=== PATIENT | female | born 1975 ===

== ENCOUNTER 2017-11-11 08:01 | Day surgery (SDC) | payer BC ==
[~2017-11-11 08:01] MED LIST: Buffered Lidocaine 0.9% SYRIN* 5 ML/SYR SYRINGE INTRADERM ONE
[2017-11-11] MEDS ORDERED: BSS OPTH.SOL* BTL ONE (10:24)
[2017-11-11] MEDS ORDERED: Methylene Blue 0.5 %* 50 MG/10 ML AMP IV ONE (10:24)
[2017-11-11] MEDS ORDERED: Lidocain 1% EPI 1:100,000 * 30 ML MDV ONE (10:24)
[2017-11-11] MEDS ORDERED: ceFAZolin 2 GM PREMIX (*) 2 GM/50 ML BAG IVPB ONE (10:32)
[2017-11-11] MEDS ORDERED: fentaNYL* 50 MCG/ML 2 ML VIAL (100 MCG VIAL) ONE (10:35)
[2017-11-11] MEDS ORDERED: Midazolam* 1 MG/ML 5 ML VIAL (5 MG) ONE (10:35)
[2017-11-11] MEDS ORDERED: Naloxone* 0.4 MG/ML 1 ML VIAL IV PRN (11:03)
[2017-11-11] MEDS ORDERED: Midazolam* 1 MG/ML 2 ML VIAL (2 MG) ONE (11:11)
[2017-11-11 11:54] VITALS: BP 108/66
== END 2017-11-11 12:15 | disposition home or self-care (01) ==
LOC: OREAST 08:01 → MERGE 09:15 → OREAST 12:15
PROVIDERS: ATTEND Plastic Surgery
DX: C44.311 Basal cell carcinoma of skin of nose (principal); F41.9 Anxiety disorder, unspecified; R51 Headache
CPT/HCPCS: 81025; A9270-GY; J0690; J2250; J3010